=== PATIENT | male | born 1935 | race Caucasian/White ===

== ENCOUNTER → 2016-05-28 | Outpatient (CLI) | payer MEDICARE, BC | END | disposition home or self-care (01) | LOC: GMAM 16:56 | PROVIDERS: ATTEND Family Medicine | DX: C61 Malignant neoplasm of prostate (principal) ==

== ENCOUNTER → 2017-09-09 | Outpatient (CLI) | payer MEDICARE ==
--- NOTE | 2017-09-09 20:26 | MRI ---
EXAM DESCRIPTION: Brain w/wo Contrast: Magnetic Resonance Imaging. CLINICAL HISTORY: DIZZINESS COMPARISON: MRI scan of the brain without contrast 02/06/2011. TECHNIQUE: Multiplanar, high-field MRI, multiple conventional sequences, without and with gadolinium IV contrast. No adverse reactions. Multiple axial diffusion sequences. FINDINGS: Bilateral multiple small foci of hyperintense FLAIR and T2-weighted signal in the periventricular white matter, more than in the bilateral sorto-white matter junctions of the cerebral hemispheres. No hemorrhage, no cerebral edema, no mass-effect. No diffusion restriction. Normal contrast enhancement. Similar signal in the anterior and posterior left basal ganglia. No hemorrhage, no abnormal contrast enhancement, no diffusion restriction. Normal signal in the brainstem and cerebellar hemispheres. No hemorrhage or diffusion restriction. Normal contrast enhancement. Concordance of the diffusion and non-diffusion sequences with no evidence of acute or subacute infarction. Cortical sulci, ventricles, and other CSF spaces, and the subdural spaces are normally configured for patients age.. No effacement or displacement. No midline shift. No extra-axial hemorrhage. Normal contrast enhancement. Normal flow signal void in the major vessels of the [place], and the venous sinuses. IACs are symmetric bilaterally. Small foci of fluid signal in the bilateral mastoid air cells. No mass effect in the bilateral Cerebellopontine angles. Normal contrast enhancement. Pituitary gland occupies most of the sella. Normal contrast enhancement. Base of the cerebellar tonsils is above the foramen magnum. No acute abnormalities in the paranasal sinuses. The bony calvarium is intact. IMPRESSION: 1. Bilateral small lesions in the periventricular white matter more than in the subcortical white matter are most likely related to cerebral microvascular disease and aging. More lesions have developed since the prior study. No mass effect, no cerebral edema, no abnormal contrast enhancement, and no diffusion restriction. 2. Similar lesions in the anterior and posterior left basal ganglia are chronic. No hemorrhage, abnormal contrast enhancement, or diffusion restriction. 3. Mild chronic paranasal sinusitis. Bilateral chronic mastoid inflammation. Electronically signed by: Andrés Benedict MD 09/09/2017 8:25 PM CDT
--- NOTE | 2017-09-09 21:13 | CT ---
EXAM DESCRIPTION: Abdomen/Pelvis w/wo Contrast (accession [id number]), Chest w/wo Contrast (accession [id number]): Computed Tomography. CLINICAL HISTORY: PROSTATE CANCER, UNEXPLAINED WEIGHT LOSS COMPARISON: CT abdomen and pelvis 06/02/2014. MRI brain without and with gadolinium IV contrast on this visit. TECHNIQUE: Spiral-axial scans at 5.0 mm intervals through the abdomen and pelvis before and after nonionic IV contrast. No oral contrast. Coronal and sagittal 2.0 mm reconstructions. 5 mm Delayed helical-axial scans, liver through the pubic symphysis. No adverse reactions. Total Exam DLP 2217.82 mGy - cm. This exam was performed according to our departmental CT dose-optimization program which includes automated exposure control, adjustment of the mA and/or kV according to patient size and/or use of iterative reconstruction technique; to reduce radiation dose to as low as reasonably achievable (ALARA). FINDINGS: Liver, Stomach, Spleen, Adrenal Glands: Large calcified pleural plaque in the right base abutting the dome of the posterior right liver. Craniocaudal dimension of the right lobe is 19.2 cm. Heterogeneous slightly low density throughout the liver. Calcifications in the spleen but normal size and no focal lesions. Stomach and adrenal glands are unremarkable. Pancreas, Gallbladder, Ducts: Almost 1 cm radiodense stone in the posterior dependent gallbladder. Normal caliber of the ducts, pancreas unremarkable. Kidneys and Ureters: Negative. Mesentery: No free air or ascites. No fatty stranding or fascial thickening. Aorta: Circumferential calcification of the distal abdominal aorta with narrowing of the lumen which extends into the bilateral common iliac arteries. Also calcification of the ostia of the major branch vessels with ectasia. Scattered small periaortic nodes. Small Bowel: Normal caliber with mostly fluid distally and gas proximally. Terminal Ileum/Cecum: Normal caliber of the terminal ileum and cecum with fecal material. Appendix normal caliber. Normal density of the surrounding fat. Colon: Minimal redundancy. Distal descending colon and rectosigmoid diverticula with no complications. Pelvic Organs: Urinary bladder moderately distended. Prostate gland has been surgically removed and numerous surgical clips are seen in the pelvis. Spine and Bony Pelvis: Spondylosis at multiple levels of the lumbar spine with levoscoliosis inferior and upper dextroscoliosis. Degenerative changes in the bilateral hip joints. No sclerotic or destructive lesions in the spine and pelvis or proximal femurs. Abdominal Wall/Back Soft Tissues: Ectasia at the umbilicus but not containing bowel. Fatty mass in the proximal rectus femoris on the right most likely a lipoma. Stable since the prior study. COMPARISON: CT chest without contrast 12/02/2013. MRI brain without and with gadolinium IV contrast on this visit. TECHNIQUE: Spiral-axial scans at 5.0 mm intervals through the lungs and thorax without and with IV contrast. 2.5 mm lung algorithm axial reconstructions. Coronal and sagittal 2.0 Mm reconstructions. No adverse reactions. Total Exam DLP: 829.28 mGy-cm. This exam was performed according to our departmental dose-optimization program which includes automated exposure control, adjustment of the mA and/or kV according to patient size and/or use of iterative reconstruction technique; to reduce radiation dose to as low as reasonably achievable (ALARA). FINDINGS: Multiple dilated airspaces in the lungs bilaterally more prevalent in the upper lobes compared to the lower lung rahman. Multiple bulla in the right upper lobe with volume loss compared to the left temporal lobe. Most of the blebs and bulla in the mid and lower lung rahman are pleural-based bilateral apical pleural thickening and scarring. Kuperman mediastinum and trachea are shifted to the right. Minimal groundglass densities in the periphery of the right upper lobe and right middle lobe. There are also thickened septa in the right middle lobe and bilateral bases with scarring and volume loss in the right lower lobe compared to the left lower lobe. Slight progression since the prior study. 7 x 5 cm irregular calcification of the lateral posterior right pleural base is stable since the prior study. There are also calcified areas of fibrosis in the base of the right And a calcified granuloma which is also stable. Perihilar peribronchial wall thickening bilaterally. Normal enhancement of the thyroid gland brachiocephalic vessels and great vessels and the mediastinum. Atherosclerotic calcifications of the brachiocephalic vessels and aortic arch descending thoracic aorta with ectasia. Coronary artery calcifications and stents. No soft tissue masses or enlarged lymph nodes in the mediastinum or abrahan. Multiple levels of thoracic spondylosis and disc space narrowing. Minimal degenerative changes in the bilateral glenohumeral joints.. IMPRESSION: 1. Progressive emphysematous changes in the lungs bilaterally since the prior study with volume loss and fibrosis in the right lung which has progressed slightly since the prior study. No suspicious nodules or masses. Bilateral groundglass densities in the right lung are stable. Stable large calcified plaque and calcified areas of fibrosis in the base of the right lung and pleura and in the right lower lobe. No enlarged lymph nodes or soft tissue masses in the mediastinum or abrahan. 2. No ascites, no peritoneal or retroperitoneal space mass, no abnormal contrast enhancement. 3. Hepatomegaly but no dilated ducts. Minimal steatosis. Stable since the prior study. 4. Diffuse atherosclerotic changes in the aorta have progressed since the prior study with scattered periaortic nodes but no adenopathy. This is stable since the prior study. 5. No fluid or mass in the pelvic cavity. Prior prostatectomy. Stable since the prior study. Diverticulosis of the distal descending colon and rectosigmoid without complications. Stable since the prior study. Electronically signed by: Andrés Benedict MD 09/09/2017 9:12 PM CDT
== END ==
LOC: LAB.O 12:53
PROVIDERS: ATTEND Family Medicine
DX: R42 Dizziness and giddiness (principal); J32.9 Chronic sinusitis, unspecified; C61 Malignant neoplasm of prostate; R16.0 Hepatomegaly, not elsewhere classified; R63.4 Abnormal weight loss; I10 Essential (primary) hypertension; I70.0 Atherosclerosis of aorta

== ENCOUNTER → 2018-10-10 | Outpatient (CLI) | payer MEDICARE | LOC: LAB.NP 16:50 | PROVIDERS: ATTEND Nurse Practitioner Acute Care | DX: R19.7 Diarrhea, unspecified (principal) ==

== ENCOUNTER 2018-10-14 13:19 | Emergency (ER) | payer MEDICARE ==
[2018-10-14] MEDS ORDERED: CIPROFLOXACIN 500 MG TAB PO ONE (16:49)
[2018-10-14] MEDS ORDERED: metroNIDAZOLE 500 MG TAB PO ONE (16:50)
--- NOTE | 2018-10-14 16:59 | RAD ---
EXAM: XR Chest, 1 View CLINICAL HISTORY: decreased O2 Sat TECHNIQUE: Frontal view of the chest. COMPARISON: CT 09/09/2017. FINDINGS: Limitations: None. Lungs: There is bilateral interstitial and parenchymal scarring with stable right basilar airspace consolidation. Pleural space: Stable right basilar fluid/thickening and calcified pleural plaque. No pneumothorax. Heart: Prominent cardiac shadow. Mediastinum: Unremarkable. Bones/joints: Old right rib fracture. Vasculature: Tortuous aorta. IMPRESSION: Stable right basilar chronic pleural and parenchymal changes. Electronically signed by: Carla Isaac MD 10/14/2018 4:57 PM CDT
--- NOTE | 2018-10-14 17:16 | ED.PDOC ---
History of Present Illness - General Chief Complaint: GI Problem Stated Complaint: Diarrhea Time Seen by Provider: 10/14/18 13:41 Additional Information: 83 YEAR OLD PRESENTS WITH DIARRHEA LAST 10-15 DAYS WATERY STOOLS NO BLOOD OR MUCOUS NO ASSOCIATED ABDOMINAL PAIN HE HAS NOT BEEN ON ANY RECENT ANTIBIOTICS HIS APPITITE IS NORMAL NO NAUSEA OR VOMITING NO OTHER FAMILY MEMBER HAS SIMILAR ILLNESS NO HISTORY OF COLITIS OR INFLAMMATORY BOWEL DISEASE HE HAS CHRONIC PERIPHERAL NEUROPATHY SO AT TIMES HE FEELS HIS GAIT IS UNSTEADY - History of Present Illness Timing/Duration: 1 week Severity: moderate Improving Factors: nothing Worsening Factors: nothing Associated Symptoms: denies symptoms Allergies/Adverse Reactions: Allergies Amoxicillin [From Augmentin] Adverse Reaction (Verified 07/18/17 10:18) No rashes stated had diarrhea with Augmentin not allergic rash Clavulanic Acid [From Augmentin] Adverse Reaction (Verified 07/18/17 10:18) Home Medications: Ambulatory Orders Amlodipine Besylate 10 mg PO BID 07/17/17 Amoxicillin [Amoxil] 1,000 mg PO BID #30 cap 07/17/17 Aspirin [Aspirin Low Strength] 81 mg PO DAILY 07/17/17 Calcium Citrate-Vitamin D [Calcitrate Plus D 315-200 mg-Unit] 1 tab PO DAILY 07/17/17 Gabapentin 300 mg PO TID 07/17/17 Lisinopril 10 mg PO BID 07/17/17 Meloxicam 07/17/17 Metformin HCl [Metformin Hydrochloride] 500 mg PO BID 07/17/17 Multiple Vitamins W/ Minerals [Multivitamin Adults] 1 tab PO DAILY 07/17/17 Primidone 50 mg PO BID 07/17/17 Rosuvastatin Calcium [Crestor] 10 mg PO DAILY 07/17/17 Ciprofloxacin HCl [Cipro] 500 mg PO Q12HRS #20 tab 10/14/18 metroNIDAZOLE [Flagyl] 500 mg PO Q8H #30 tab 10/14/18 Review of Systems - Review of Systems Constitutional: States: no symptoms reported EENTM: States: no symptoms reported Respiratory: States: no symptoms reported Cardiology: States: no symptoms reported Gastrointestinal/Abdominal: States: see HPI Genitourinary: States: no symptoms reported Musculoskeletal: States: no symptoms reported Skin: States: no symptoms reported Neurological: States: no symptoms reported Endocrine: States: no symptoms reported Hematologic/Lymphatic: States: no symptoms reported Past Medical History (General) - Patient Medical History Hx Stroke: No Hx Cardiac Disorders: Yes - Dyslipidemia Hx Congestive Heart Failure: No Hx Hypertension: Yes Hx Diabetes: Yes - No longer takes medication for this (dc'ed 2019) Hx Cancer: Yes - prostate in remission Hx MRSA: No Surgical History: other - Vaccination History Hx Tetanus, Diphtheria Vaccination: - unknown Hx Influenza Vaccination: Yes - 2018 Hx Pneumococcal Vaccination: Yes - Social History Hx Tobacco Use: No Hx Alcohol Use: Yes - Occasional Family Medical History - Family History Father Family History: Unknown Living Status: Physical Exam - Physical Exam General Appearance: Alert, Comfortable Eye Exam: bilateral normal Ears, Nose, Throat: hearing grossly normal, normal ENT inspection, normal pharynx Neck: non-tender, full range of motion, supple, normal inspection Respiratory: chest non-tender, lungs clear, normal breath sounds, no respiratory distress, no accessory muscle use Cardiovascular/Chest: normal peripheral pulses, regular rate, rhythm, no edema, no gallop, no JVD, no murmur Peripheral Pulses: radial,right: 2+, radial,left: 2+ Gastrointestinal/Abdominal: normal bowel sounds, non tender, soft, no organomegaly, no pulsatile mass Rectal Exam: deferred Back Exam: normal inspection, no CVA tenderness, no vertebral tenderness Extremity: normal range of motion, non-tender, normal inspection, no pedal edema, no calf tenderness Neurologic: grain trimmer II-XII nml as tested, no motor/sensory deficits, alert, normal mood/affect, oriented x 3 Skin Exam: normal color, warm/dry Progress - Results/Orders Results/Orders: Laboratory Tests 10/14/18 10/14/18 10/14/18 14:00 14:30 14:30 WBC 5.3 RBC 4.17 L Hgb 14.9 Hct 43.4 MCV 104.0 H MCH 35.7 H MCHC 34.3 RDW 13.2 Plt Count 184 MPV 7.2 L Absolute Neuts (auto) 4.30 Absolute Lymphs (auto) 0.50 L Absolute Monos (auto) 0.50 Absolute Eos (auto) 0.10 Absolute Basos (auto) 0.00 Neutrophils % 80.4 H Lymphocytes % 9.1 L Monocytes % 8.6 Eosinophils % 1.3 Basophils % 0.6 Sodium 130 L Potassium 4.2 Chloride 91 L Carbon Dioxide 25 Anion Gap 18.2 H BUN 17 Creatinine 0.95 BUN/Creatinine Ratio 17.9 Random Glucose 84 Serum Osmolality 261.5 L Calcium 9.7 Urine Color Yellow Urine Appearance Clear Urine pH 7.5 Ur Specific [place] 1.015 Urine Protein Negative Urine Glucose (UA) Negative Urine Ketones Negative Urine Blood Negative Urine Nitrite Negative Urine Bilirubin Negative Urine Urobilinogen 0.2 Ur Leukocyte Esterase Negative Urine RBC 0-1 Urine WBC 0-1 Ur Epithelial Cells 0-1 Urine Bacteria Rare OUT PATIENT STOOL LAB WAS CHECKED STILL [facility] PARASITE GIARDIA PENDING DISCUSSED THE OPTION ANTIBIOTICS VS DOING NOTHING TILL ALL LABS BACK HE WOULD LIKE TO TAKE ANTIBIOTICS AND SEE WILL GIVE HIM CIPRO AND FLAGYL AN EMPIRICAL THERAPY Departure - Departure Clinical Impression: Diarrhea Time of Disposition: 17:20 Disposition: Discharge to Home or Self Care Condition: Good Departure Forms: ED Discharge - Pt. Copy, Patient Portal Self Enrollment Diet: bland diet Referrals: TABBY BETTS PA [Primary Care Provider] - 1-2 Weeks Prescriptions: Ciprofloxacin HCl [Cipro] 500 mg PO Q12HRS #20 tab metroNIDAZOLE [Flagyl] 500 mg PO Q8H #30 tab Home Medications: Ambulatory Orders Amlodipine Besylate 10 mg PO BID 07/17/17 Amoxicillin [Amoxil] 1,000 mg PO BID #30 cap 07/17/17 Aspirin [Aspirin Low Strength] 81 mg PO DAILY 07/17/17 Calcium Citrate-Vitamin D [Calcitrate Plus D 315-200 mg-Unit] 1 tab PO DAILY 07/17/17 Gabapentin 300 mg PO TID 07/17/17 Lisinopril 10 mg PO BID 07/17/17 Meloxicam 07/17/17 Metformin HCl [Metformin Hydrochloride] 500 mg PO BID 07/17/17 Multiple Vitamins W/ Minerals [Multivitamin Adults] 1 tab PO DAILY 07/17/17 Primidone 50 mg PO BID 07/17/17 Rosuvastatin Calcium [Crestor] 10 mg PO DAILY 07/17/17 Ciprofloxacin HCl [Cipro] 500 mg PO Q12HRS #20 tab 10/14/18 metroNIDAZOLE [Flagyl] 500 mg PO Q8H #30 tab 10/14/18 Comments: FOLLOW UP WITH PCP CHEST XAY CHRONIC PLEURAL THICKENING COMPARED CT CHEST FROM LAST YEAR APPEARS TO BE SAME NO NEW CHANGES HE WAS AMBULATED IN [address] WITH NORMAL VITALS TAMI O2 SAT REMIANED AT 95 % WILL DE HOME
[2018-10-14 17:35] VITALS: BP 148/82; TEMP 98.1; O2SAT 97
== END 2018-10-14 17:30 | disposition home or self-care (01) ==
LOC: ER 13:19
DX: R19.7 Diarrhea, unspecified (principal); E78.5 Hyperlipidemia, unspecified; I10 Essential (primary) hypertension; Z85.46 Personal history of malignant neoplasm of prostate; Z79.899 Other long term (current) drug therapy; Z88.1 Allergy status to other antibiotic agents

== ENCOUNTER → 2018-11-12 | Outpatient (CLI) | payer MEDICARE | LOC: NC 12:02 | PROVIDERS: ATTEND Family Medicine | DX: I50.20 Unspecified systolic (congestive) heart failure (principal) ==

== ENCOUNTER → 2019-09-27 | Outpatient (CLI) | payer MEDICARE | LOC: NC 19:02 | PROVIDERS: ATTEND Family Medicine | DX: J44.9 Chronic obstructive pulmonary disease, unspecified (principal); I35.0 Nonrheumatic aortic (valve) stenosis; I11.0 Hypertensive heart disease with heart failure; E11.40 Type 2 diabetes mellitus with diabetic neuropathy, unspecified; I65.23 Occlusion and stenosis of bilateral carotid arteries; E78.2 Mixed hyperlipidemia; R06.02 Shortness of breath ==

== ENCOUNTER → 2019-10-11 | Outpatient (CLI) | payer MEDICARE | LOC: NC 17:09 | PROVIDERS: ATTEND Family Medicine | DX: J44.9 Chronic obstructive pulmonary disease, unspecified (principal) ==

== ENCOUNTER → 2019-10-20 | Outpatient (CLI) | payer MEDICARE | END | disposition home or self-care (01) | LOC: GMAM 14:42 | PROVIDERS: ATTEND Family Medicine | DX: E53.8 Deficiency of other specified B group vitamins (principal); R53.1 Weakness ==

== ENCOUNTER 2019-11-13 15:50 | Emergency (ER) | payer MEDICARE ==
--- NOTE | 2019-11-13 16:05 | ED.PDOC ---
History of Present Illness - General Time Seen by Provider: 11/13/19 15:51 - History of Present Illness Initial Comments: 84 yo pleasant male comes in with daughter s/p multiple falls. in the past 24 hours patient has fallen 3 times. States he is dizzy before he falls, denies LOC . This morning fell after using the bathroom. Hit chin and forehead. Last fall patient was being walked to his bed, when he fell. Per home health he did have LOC prior to fall. She helped lower him to the ground. Had an aortic valve replaced in July 2019. Denies chest pain. Has required pleural effusion drainage due to CHF. denies n/v/d. no change in vision. He follows Dr. Ingram and Dr. Barry in [facility] for cardiology. Currently denies chest pain or shortness of breath. no dizziness. Allergies/Adverse Reactions: Allergies Amoxicillin [From Augmentin] Adverse Reaction (Verified 07/18/17 10:18) No rashes stated had diarrhea with Augmentin not allergic rash Clavulanic Acid [From Augmentin] Adverse Reaction (Verified 07/18/17 10:18) Home Medications: Ambulatory Orders Gabapentin 300 mg PO DAILY 07/17/17 Albuterol Sulfate Nebs [Proventil Nebs] 2.5 mg INH Q4H PRN 10/05/19 Amlodipine Besylate 2.5 mg PO DAILY 10/05/19 Calcium 600 mg PO DAILY 10/05/19 Clopidogrel Bisulfate [Plavix] 75 mg PO DAILY 10/05/19 Melatonin 10 mg PO BEDTIME 10/05/19 Pantoprazole Tablet [Protonix] 40 mg PO ACBK 10/05/19 Potassium Chloride [K-Tab] 10 meq PO BID 10/05/19 Furosemide [Lasix] 20 mg PO 0800,1500 #60 tab 10/08/19 Cholecalciferol [Vitamin D3] 1,000 unit PO DAILY 11/13/19 Gabapentin 600 mg PO BEDTIME 11/13/19 Loratadine 10 mg PO DAILY 11/13/19 Primidone 50 mg PO BID 11/13/19 Probiotic Product [Probiotic] 1 tab PO DAILY 11/13/19 Review of Systems - Review of Systems Constitutional: States: weakness. Denies: chills, fever EENTM: Denies: eye pain, blurred vision, double vision, ear discharge, nose congestion, throat pain, mouth pain Respiratory: Denies: cough, orthopnea, short of breath, stridor, wheezing Cardiology: Denies: chest pain, edema, palpitations Gastrointestinal/Abdominal: Denies: abdominal pain, constipation, diarrhea, nausea, vomiting Musculoskeletal: States: joint pain, joint swelling. Denies: back pain, muscle pain, muscle stiffness, neck pain Skin: States: see HPI Neurological: Denies: headache, numbness, paresthesia, seizure, tingling, tremo rs Endocrine: Denies: unexplained weight gain, unexplained weight loss Hematologic/Lymphatic: States: easy bruising Past Medical History (General) - Patient Medical History Hx Seizures: No Hx Stroke: No Hx Asthma: No Hx of COPD: Yes Hx Cardiac Disorders: Yes - Dyslipidemia Hx Congestive Heart Failure: No Hx Pacemaker: No Hx Hypertension: Yes Hx Diabetes: No Hx Cancer: Yes - prostate in remission Hx MRSA: No Hx Other - free text: pleural effusion, aortic stenosis s/p valve replacement - Vaccination History Hx Tetanus, Diphtheria Vaccination: - unknown Hx Influenza Vaccination: Yes - 2018 Hx Pneumococcal Vaccination: Yes - Social History Hx Tobacco Use: No Hx Alcohol Use: No Hx Substance Use: No Hx Physical Abuse: No Hx Emotional Abuse: No - Activities of Daily Living Grooming Ability: Independent Eating (Feeding) Ability: Independent Toileting Ability: Independent Family Medical History - Family History Father Family History: Unknown Living Status: Physical Exam - Physical Exam General Appearance: Alert, Comfortable, No apparent distress, Well Developed, Well Groomed, Well Hydrated, Well Nourished Comments: GCS 15, SKIN: Warm and well perfused. multiple ecchymosis on right eye, chin, bilateral arms. HEAD: normocephalic without edema, discoloration. Facial bones without deformities or tenderness. EYES: Right pupil 2-3 mm, left pupil 4 mm. No scleral icterus or conjunctival injection. Extraocular muscles intact without nystagmus or diplopia. No proptosis or enophthalmos. EARS: Normal appearing pinnae. cutaneous horn on right ear. No hemotympanum. NOSE: No discharge, tenderness, laxity. No nasal septal hematoma. MOUTH: No malocclusion or trismus. Moist mucus membranes without blood. Posterior pharynx without erythema or exudate. poor dentition NECK: Trachea midline. No discolorations or edema. Neck immobilized in cervical collar. CV: Regular rate and rhythm. no murmur, no jvd PV: Radial pulses 2+ bilaterally and symmetric. Dorsalis pedis pulses 2+ bilaterally and symmetric. 2+ capillary refill. No extremity edema. CHEST: No abrasions or ecchymosis. Chest symmetric with respirations. No chest wall tenderness. No crepitus. No step offs. Rales heard bilaterally. No rhonchi, wheezing or stridor. ABDOMEN: No ecchymosis or abrasions. Soft, nondistended, nontender. Bowel tones normoactive. No masses or organomegaly. BACK: No abrasions, skin openings, or ecchymosis. Spine without bony tenderness, no step offs. PELVIC: Pelvis stable, nontender to lateral compression and palpation of symphysis pubis. MSK: No gross deformities or discolorations or lesions. Tolerates full range of motion of extremities without tenderness. left knee with patellar swelling. NEURO: Alert and oriented to person, place, and time. GCS 15. CN II-XII intact. Sensation grossly intact. Strength 5/5 in bilateral UE and LE. Finger to nose intact bilaterally. Progress - Progress Progress: EKG shows HR 76, NSR with PVC, T wave inversion in v3-v6. no prior ekg to compare. QTc 479. troponin wnl. CXR shows chronic loculated pleural effusion. Knee xray with swelling, but no other pathology. CT head negative for ICH, no facial fractures noted. Orthostatics negative. will give an additional dose of lasix for pleural effusion. Will call [facility] to transfer for syncope workup. Tdap given. 11/13/19 16:15 EKG STAT Laboratory Results WBC 6.4 K/mm3 (4.8-10.8) 11/13/19 16:25 RBC 3.66 M/mm3 (4.70-6.10) L 11/13/19 16:25 Hgb 12.6 gm/dL (14.0-18.0) L 11/13/19 16:25 Hct 37.3 % (42.0-52.0) L 11/13/19 16:25 MCV 101.9 fl (80.0-94.0) H 11/13/19 16:25 MCH 34.5 pg (27.0-31.0) H 11/13/19 16:25 MCHC 33.8 g/dL (33.0-37.0) 11/13/19 16:25 RDW 13.8 % (11.5-14.5) 11/13/19 16:25 Plt Count 205 K/mm3 (130-400) 11/13/19 16:25 MPV 7.0 fl (7.40-10.4) L 11/13/19 16:25 Absolute Neuts (auto) 5.60 K/uL (1.8-6.8) 11/13/19 16:25 Absolute Lymphs (auto) 0.40 K/uL (1.0-3.4) L 11/13/19 16:25 Absolute Monos (auto) 0.40 K/uL (0.2-0.8) 11/13/19 16:25 Absolute Eos (auto) 0.00 K/uL (0.0-0.4) 11/13/19 16:25 Absolute Basos (auto) 0.00 K/uL (0.0-0.1) 11/13/19 16:25 Neutrophils % 86.8 % (42.0-78.0) H 11/13/19 16:25 Lymphocytes % 6.4 % (20.0-50.0) L 11/13/19 16:25 Monocytes % 5.9 % (2.0-9.0) 11/13/19 16:25 Eosinophils % 0.5 % (1.0-5.0) L 11/13/19 16:25 Basophils % 0.4 % (0.0-2.0) 11/13/19 16:25 PT 10.1 SECONDS (9.0-10.9) 11/13/19 16:25 INR 1.02 (0.9-1.15) 11/13/19 16:25 PTT (SP) 23.1 SECONDS (21.8-31.6) 11/13/19 16:25 Sodium 135 mmol/L (135-145) 11/13/19 16:25 Potassium 3.7 mmol/L (3.6-5.0) 11/13/19 16:25 Chloride 96 mmol/L (101-111) L 11/13/19 16:25 Carbon Dioxide 29 mmol/L (21-31) 11/13/19 16:25 Anion Gap 13.7 (12-18) 11/13/19 16:25 BUN 22 mg/dL (7-18) H 11/13/19 16:25 Creatinine 1.02 mg/dL (0.6-1.3) 11/13/19 16:25 BUN/Creatinine Ratio 21.6 (10-20) H 11/13/19 16:25 Random Glucose 111 mg/dL (70-105) H 11/13/19 16:25 Serum Osmolality 274.1 mOsm/L (275-295) L 11/13/19 16:25 Calcium 9.1 mg/dL (8.4-10.2) 11/13/19 16:25 Total Bilirubin 1.1 mg/dL (0.2-1.0) H 11/13/19 16:25 AST 30 IU/L (10-42) 11/13/19 16:25 ALT 17 IU/L (10-60) 11/13/19 16:25 Alkaline Phosphatase 66 IU/L (42-121) 11/13/19 16:25 Troponin I 0.03 ng/mL (0.01-0.05) 11/13/19 16:25 B-Natriuretic Peptide 408.0 pg/ml (0-100) H* 11/13/19 16:25 Serum Total Protein 7.4 gm/dL (6.4-8.2) 11/13/19 16:25 Albumin 3.6 g/dl (3.2-5.5) 11/13/19 16:25 Globulin 3.8 gm/dL (2.3-3.5) H 11/13/19 16:25 Albumin/Globulin Ratio 0.9 (1.1-1.9) L 11/13/19 16:25 TSH 2.20 uIU/mL (0.34-5.60) 11/13/19 16:25 - Results/Orders Results/Orders: The data reviewed when caring for this patient included: nurse notes, prior records, etc. The history and assessments from nurses notes were reviewed and considered, and the patient's home medication list was also reviewed and considered. My assessment and the results of testing completed here in the ED were discussed with the patient/family. All questions were answered, and they express understanding of my assessment and the plan. VSS. GCS remains 15. Patient was transferred to [facility] in stable condition. Sally Estrella DO #[id number] Departure - Departure Clinical Impression: Syncope and collapse, Pleural effusion Contusion Qualifiers: Encounter type: initial encounter Contusion area: head Contusion of head detail: periocular area Laterality: left Qualified Code(s): S00.12XA - Contusion of left eyelid and periocular area, initial encounter Disposition: Transfer to Hospital Referrals: TABBY BETTS PA [Primary Care Provider] - 1-2 Days Home Medications: Ambulatory Orders Gabapentin 300 mg PO DAILY 07/17/17 Albuterol Sulfate Nebs [Proventil Nebs] 2.5 mg INH Q4H PRN 10/05/19 Amlodipine Besylate 2.5 mg PO DAILY 10/05/19 Calcium 600 mg PO DAILY 10/05/19 Clopidogrel Bisulfate [Plavix] 75 mg PO DAILY 10/05/19 Melatonin 10 mg PO BEDTIME 10/05/19 Pantoprazole Tablet [Protonix] 40 mg PO ACBK 10/05/19 Potassium Chloride [K-Tab] 10 meq PO BID 10/05/19 Furosemide [Lasix] 20 mg PO 0800,1500 #60 tab 10/08/19 Cholecalciferol [Vitamin D3] 1,000 unit PO DAILY 11/13/19 Gabapentin 600 mg PO BEDTIME 11/13/19 Loratadine 10 mg PO DAILY 11/13/19 Primidone 50 mg PO BID 11/13/19 Probiotic Product [Probiotic] 1 tab PO DAILY 11/13/19 Transfer to Outside Facility - Transfer Information Decision to Transfer Date: 11/13/19 Decision to Transfer Time: 17:30 Reason for Transfer: specialized care not available
[2019-11-13] MEDS ORDERED: FUROSEMIDE INJ 20 MG/2 ML VIAL IV ONE (17:42)
[2019-11-13] MEDS ORDERED: fentaNYL CITRATE INJ 50 MCG/ML AMP IV ONE (17:47)
--- NOTE | 2019-11-13 17:47 | RAD ---
EXAM DESCRIPTION: X-ray Chest, 2 Views CLINICAL HISTORY: 84 years Male, fall COMPARISON: October 08, 2019. FINDINGS/IMPRESSION: 1. Cardiomediastinal silhouette is normal. 2. Persistent and grossly unchanged opacity in the right lung base which may represent atelectasis, infiltrate and/or pleural effusion. 3. No pneumothorax. 4. Status post TAPVR. 5. Degenerative changes are present. Electronically signed by: Berry Breen MD 11/13/2019 5:45 PM CDT
--- NOTE | 2019-11-13 17:52 | CT ---
EXAM DESCRIPTION: Head CLINICAL HISTORY: 84 years Male fall TECHNIQUE: Axial noncontrast CT head with coronal and sagittal reformats. All CT scans at this facility use dose modulation, iterative reconstruction, and/or weight based dosing when appropriate to reduce radiation dose to as low as reasonably achievable. COMPARISON: MRI brain September 09, 2017. FINDINGS: Brain: Diffuse parenchymal volume loss. Chronic small vessel disease. No obvious large territorial infarction. No intracranial hemorrhage, midline shift, mass or mass effect. Ventricles: No hydrocephalus. Orbits: Unremarkable. Sinuses: Visualized portions are clear. Mastoid: Clear Osseous: Unremarkable. Soft tissues: Mild left frontal scalp soft tissue swelling. IMPRESSION: 1. No acute intracranial findings. 2. Mild left frontal scalp soft tissue swelling. 3. No acute fracture. Electronically signed by: Berry Breen MD 11/13/2019 5:50 PM CDT
--- NOTE | 2019-11-13 17:54 | RAD ---
EXAM DESCRIPTION: X-ray Knee, Left Complete; 3 views CLINICAL HISTORY: 84 years Male, fall COMPARISON: None. FINDINGS/IMPRESSION: 1. No acute fracture or dislocation. 2. Status post total knee arthroplasty with patellar resurfacing and intact hardware. 3. Suprapatellar effusion is present. Electronically signed by: Berry Breen MD 11/13/2019 5:52 PM CDT
--- NOTE | 2019-11-13 17:55 | RAD ---
EXAM DESCRIPTION: X-RAY Knee, Right Complete; 3 views CLINICAL HISTORY: 84 years Male, fall COMPARISON: None. FINDINGS/IMPRESSION: 1. No acute fracture or dislocation. 2. Status post total knee arthroplasty with patellar resurfacing and intact hardware. 3. Soft tissues are unremarkable. Electronically signed by: Berry Breen MD 11/13/2019 5:53 PM CDT
[2019-11-13] MEDS ORDERED: TETANUS,DIPHTHERIA,PERTUSSIS 1 EA SYG IM ONE (18:17)
[2019-11-13 19:26] VITALS: BP 143/82; TEMP 96.7; O2SAT 93
== END 2019-11-13 19:38 | disposition short-term general hospital (02) ==
LOC: ER 15:50
DX: R55 Syncope and collapse (principal); J90 Pleural effusion, not elsewhere classified; S00.12XA Contusion of left eyelid and periocular area, initial encounter; R29.6 Repeated falls; R42 Dizziness and giddiness; R53.1 Weakness; J44.9 Chronic obstructive pulmonary disease, unspecified; E78.5 Hyperlipidemia, unspecified; I10 Essential (primary) hypertension; Z23 Encounter for immunization; Z95.2 Presence of prosthetic heart valve; Z85.46 Personal history of malignant neoplasm of prostate; Z79.899 Other long term (current) drug therapy; Z79.02 Long term (current) use of antithrombotics/antiplatelets; Z88.1 Allergy status to other antibiotic agents; W18.30XA Fall on same level, unspecified, initial encounter; Y92.9 Unspecified place or not applicable
CPT/HCPCS: 36415; 70450; 71046; 73562; 80053; 83880; 84443; 84484; 85025; 85610; 85730; 90471; 90715; 93005; J1940; J3010